=== PATIENT | male | born 1945 | race Caucasian/White ===

== ENCOUNTER 2022-06-12 17:35 | Emergency (ER) | payer MEDICARE, BC ==
[~2022-06-12] VITALS: Ht 182.9 cm; Wt 81.6 kg
[2022-06-12 17:50] VITALS: BP 152/97
[2022-06-12] MEDS ORDERED: TDAP [DIPH/PERTUSSIS/TET] 0.5 ML VIAL IM ONE ×2 (18:30→18:43)
[2022-06-12] MEDS ORDERED: LIDOCAINE HCL/PF 1% 30 ML VIAL TP ONE (18:30)
[2022-06-12] MEDS ORDERED: LIDOCAINE MPF 1%-EPI 1:200,000 30 ML VIAL IJ ONE (18:42)
--- NOTE | 2022-06-12 19:15 | NUR ---
BIB FAMILY S/P GLF FACE FIRST, +UPPER LIP LACERATION, DENIES KO
--- NOTE | 2022-06-12 20:01 | NUR ---
Dr. Ramirez at bedside to do suturing.
--- NOTE | 2022-06-12 20:46 | NUR ---
Patient discharged to home in stable condition. Written and verbal after care instructions given to Pt and Pt's . Patient and his verbalizes understanding of instruction.
== END 2022-06-12 20:49 | disposition home or self-care (01) ==
LOC: ER 17:40
DX: S01.511A Laceration without foreign body of lip, initial encounter (principal); I10 Essential (primary) hypertension; E11.9 Type 2 diabetes mellitus without complications; Z95.1 Presence of aortocoronary bypass graft; Z98.890 Other specified postprocedural states; Z88.1 Allergy status to other antibiotic agents; W01.0XXA Fall on same level from slipping, tripping and stumbling without subsequent striking against object, initial encounter; Y93.89 Activity, other specified; Y92.89 Other specified places as the place of occurrence of the external cause; Y99.8 Other external cause status
CPT/HCPCS: 99283; 12011; 90471; 90715; J3490 ×2